=== PATIENT | female | born 1945 | race Caucasian/White ===

== ENCOUNTER 2016-07-31 06:19 | Inpatient (IN) | payer MEDICARE, OTHER, SELFPAY ==
[2016-07-28 14:03] LABS: BASOPHILS 0.6 %; BASOPHILS ABSOLUTE 0.05 10/3/uL (0.0-0.16); EOSINOPHILS 4.6 %; EOSINOPHILS ABSOLUTE 0.42 10/3/uL (0.0-0.53); HEMATOCRIT 40.1 % (36.0-48.0); HEMOGLOBIN 13.4 g/dL (12.0-16.0); IMMATURE GRANULOCYTES 0.3 %; IMMATURE GRANULOCYTES ABSOLUTE 0.03 10/3/uL (0.0-0.11); LYMPHOCYTES 20.6 %; LYMPHOCYTES ABSOLUTE 1.86 10/3/uL (0.67-4.30); MEAN CORPUS HGB CONC 33.4 g/dL (32.0-36.0); MEAN CORPUSCULAR HEMOGLOB 28.2 pg (26.0-34.0); MEAN CORPUSCULAR VOLUME 84.4 fL (80-100); MEAN PLATELET VOLUME 9.9 fL (9.2-13.0); MONOCYTES 6.4 %; MONOCYTES ABSOLUTE 0.58 10/3/uL (0.21-1.20); NEUTROPHILS 67.5 %; NEUTROPHILS ABSOLUTE 6.11 10/3/uL (2.02-8.40); PLATELET COUNT 299 10/3/uL (150-400); RBC DISTRIBUTION WIDTH 14.3 % (12.0-16.0); RED CELL COUNT 4.75 10/6/uL (4.0-5.6); WHITE BLOOD CELLS 9.1 10/3/uL (4.5-10.5)
[2016-07-28 14:04] LABS: MANUAL DIFF NO %
[2016-07-28 14:08] LABS: INTERNATIONAL NORMAL RATI 1.1 UNITS (-); PROTIME (NOT ORD) 13.7 SEC (12.0-14.5)
[2016-07-28 14:19] LABS: A/G RATIO 1.1 (0.7-1.9); ALBUMIN 4.1 G/DL (3.5-5.0); ALKALINE PHOSPHATASE 105 U/L (45-117); BUN (BLOOD UREA NITROGEN) 22 MG/DL (6-23); CALCIUM, SERUM 9.4 MG/DL (8.5-10.4); CHLORIDE, SERUM 103 MMOL/L (96-112); CO2 (CARBON DIOXIDE) 28 MMOL/L (24-34); CREATININE 0.85 MG/DL (0.55-1.02); GFR AFRICAN AMERICAN 80 ML/MIN (>=60); GFR NON AFRICAN AMERICAN 69 ML/MIN (>=60); GLOBULIN 3.8 G/DL (2.5-4.1); GLUCOSE, SERUM 143 MG/DL (60-99); POTASSIUM, SERUM 5.1 MMOL/L (3.5-5.3); SGOT(AST) 23 U/L (5-40); SGPT(ALT) 23 U/L (5-65); SODIUM, SERUM 139 MMOL/L (135-148); TOTAL BILIRUBIN 0.4 MG/DL (0-1.2); TOTAL PROTEIN 7.9 G/DL (6.0-8.5)
[2016-07-28 16:17] LABS: ASCORBIC ACID (UR NOT ORDER) NEG (NEG); BILIRUBIN, URINE NEGATIVE (NEG); KETONE, URINE NEGATIVE (NEG); LEUKOCYTE ESTERASE(NOT OR SMALL (NEG); WBC (NOT ORDERED) (RFLEX) 3 (0-5)
--- NOTE | ~2016-07-31 | OP ---
Record Of Operation [facility] [address] [place]. [address] NAME: BETY FRANCIS : 45 STATUS : ADM IN [facility]#: [id number] AGE: 71 ADM/REG DATE : 07/31/16 MR#: [id number] REPORT SERV DATE: 07/31/16 DICTATED BY: NISREEN WU JR. DATE: 07/31/16 REPORT STATUS : Draft TRANSCRIBED BY: MODL DATE: 07/31/16 DATE OF PROCEDURE: 07/31/2016 PREOPERATIVE DIAGNOSES: Bronchoscopy, left thoracoscopy with left upper lobectomy, complete mediastinal node dissection, dayami stations 5, 6, 7, 9, 10L, 11L; and intercostal nerve block. SURGEON: Nisreen Wu M.D. [employer]ING MACHINE OPERATOR: Héctor Bradford. RESIDENT SURGEON: Dr. Andrew Bolivar. 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 There were some mild mediastinal lymphadenopathy, but none of the nodes looked pathologically concerning. There was good reexpansion of the left lower lobe. Preoperatively, the patient was able to stop smoking for least two weeks and felt like she had reasonable handle on her addiction and that she wishes to be aggressive from a cancer standpoint. She understood the impact on her long-term lung function and cancerous risk if she went back to smoking. DETAILS OF OPERATION: After adequate anesthesia, the patient was intubated. Bronchoscopy was performed noting no endobronchial lesions. Mucous secretions were evacuated. There was no contraindication proceeding on with surgery. Left-sided double-lumen endotracheal tube was then placed. The patient was then positioned in the right lateral decubitus position. The left chest was prepped and draped in routine sterile fashion. A small incision made overlying the lower intercostal space. A separate anterior trocar incision was also made. Through these two incision sites, above findings were noted. Chest was explored noting no evidence of metastatic disease. The tumor was identified. The plan was to proceed on with a left upper lobectomy. The inferior pulmonary ligament was then divided. The inferior pulmonary vein was identified. The hilar structures were dissected out. The left superior pulmonary vein was then identified and transected with a vascular stapler. The pulmonary arterial branches were identified and transected with the vascular stapler. The bronchus was then divided with a ARTHUR stapler. The fissure was divided with multiple firings of ARTHUR stapler with tissue reinforcements. The specimen was placed in a specimen bag and brought out through the anterior trocar site. Nodes from the AP window, subcarinal, inferior pulmonary ligament, and hilar regions were removed. Chest was thoroughly irrigated with sterile water. A 28-Georgian chest tube was placed. The lung was reinflated. The trocar sites were closed with running Vicryl sutures. The skin was closed with running monofilament suture. A Dermabond dressing was applied. An intercostal nerve block then been performed prior to closing the chest. The patient tolerated the procedure well and taken back to the recovery room in stable condition. /[facility] Record Of Operation [address] [place]. [address] NAME: BETY FRANCIS : 45 STATUS : ADM IN [facility]#: [id number] AGE: 71 ADM/REG DATE : 07/31/16 MR#: [id number] REPORT SERV DATE: 07/31/16 DICTATED BY: NISREEN WU JR. DATE: 07/31/16 REPORT STATUS : Draft TRANSCRIBED BY: ENRIQUETA DATE: 07/31/16 Nisreen Wu Jr., M.D. / [id number] CC: Tabitha Coyne Jr., M.D.
[~2016-07-31 06:19] MED LIST: ASAB PO; COREG6 PO; CRESTOR20 MG PO; FEMARA PO; GLUCPH PO; HUMALOG SC; HUMULIN R1 ML SC; KADIAN10 MG PO; KLONO2 PO; LEVOTHROID25 MCG PO; LORTAB10 PO; NIASPAN500 PO; NORV5 PO; OXYCOD PO; OXYCONTIN30 MG PO; PREV30 PO; PRIN10 PO; PROAIR HFA INH; PROZAC PO; PROZAC40 MG PO; RANITIDINE300 MG PO; ROXICODONE15 MG PO; ROXICODONE30 MG PO; SEROQUEL1C PO; SEROQUEL50 MG PO; SINGULAIR1 PO; SPIRIVA INH; SYN.05 PO; TAMIFLU PO; ZANAFLEX 4 MG TA4 MG PO; ZANTAC300 MG PO; ZETIA PO
[2016-08-01 03:53] LABS: BASOPHILS 0.1 %; BASOPHILS ABSOLUTE 0.01 10/3/uL (0.0-0.16); EOSINOPHILS 0.1 %; EOSINOPHILS ABSOLUTE 0.01 10/3/uL (0.0-0.53); HEMATOCRIT 37.4 % (36.0-48.0); HEMOGLOBIN 12.4 g/dL (12.0-16.0); IMMATURE GRANULOCYTES 0.3 %; IMMATURE GRANULOCYTES ABSOLUTE 0.04 10/3/uL (0.0-0.11); LYMPHOCYTES 8.2 %; LYMPHOCYTES ABSOLUTE 1.02 10/3/uL (0.67-4.30); MEAN CORPUS HGB CONC 33.2 g/dL (32.0-36.0); MEAN CORPUSCULAR HEMOGLOB 28.2 pg (26.0-34.0); MONOCYTES 7.8 %; MONOCYTES ABSOLUTE 0.97 10/3/uL (0.21-1.20); NEUTROPHILS 83.5 %; NEUTROPHILS ABSOLUTE 10.44 10/3/uL (2.02-8.40); PLATELET COUNT 228 10/3/uL (150-400); RBC DISTRIBUTION WIDTH 14.3 % (12.0-16.0); WHITE BLOOD CELLS 12.5 10/3/uL (4.5-10.5)
[2016-08-01 03:54] LABS: MANUAL DIFF NO %
[2016-08-01 04:05] LABS: CALCIUM, SERUM 8.5 MG/DL (8.5-10.4); CHLORIDE, SERUM 103 MMOL/L (96-112); CO2 (CARBON DIOXIDE) 27 MMOL/L (24-34); CREATININE 0.88 MG/DL (0.55-1.02); GFR AFRICAN AMERICAN 77 ML/MIN (>=60); GFR NON AFRICAN AMERICAN 66 ML/MIN (>=60); POTASSIUM, SERUM 4.3 MMOL/L (3.5-5.3); SODIUM, SERUM 138 MMOL/L (135-148)
[2016-08-01 04:07] LABS: BUN (BLOOD UREA NITROGEN) 13 MG/DL (6-23); GLUCOSE, SERUM 229 MG/DL (60-99)
[2016-08-01] MEDS ORDERED: PCET PO (10:07)
[2016-08-02 05:22] LABS: BUN (BLOOD UREA NITROGEN) 15 MG/DL (6-23); CALCIUM, SERUM 8.5 MG/DL (8.5-10.4); CHLORIDE, SERUM 99 MMOL/L (96-112); CO2 (CARBON DIOXIDE) 28 MMOL/L (24-34); GFR AFRICAN AMERICAN 66 ML/MIN (>=60); GFR NON AFRICAN AMERICAN 57 ML/MIN (>=60); GLUCOSE, SERUM 238 MG/DL (60-99); POTASSIUM, SERUM 4.1 MMOL/L (3.5-5.3); SODIUM, SERUM 136 MMOL/L (135-148)
== END 2016-08-02 15:24 | disposition home or self-care (01) | DRG 165 ==
LOC: SDC/OF 06:19 → PACU 12:51 → 5NO 14:21
PROVIDERS: Internal Medicine; Thoracic Surgery (Cardiothoracic Vascular Surgery)
PROC: 3E0T3BZ Introduction of Anesthetic Agent into Peripheral Nerves and Plexi, Percutaneous Approach (ICD-10-PCS; 2016-07-31)
PROC: 0BTG4ZZ Resection of Left Upper Lung Lobe, Percutaneous Endoscopic Approach (ICD-10-PCS; principal; 2016-07-31 08:15)
PROC: 07T74ZZ Resection of Thorax Lymphatic, Percutaneous Endoscopic Approach (ICD-10-PCS; 2016-07-31 08:15)
DX: C34.12 Malignant neoplasm of upper lobe, left bronchus or lung (principal); J44.9 Chronic obstructive pulmonary disease, unspecified; E11.9 Type 2 diabetes mellitus without complications; I10 Essential (primary) hypertension; F17.210 Nicotine dependence, cigarettes, uncomplicated; Z82.49 Family history of ischemic heart disease and other diseases of the circulatory system; E78.2 Mixed hyperlipidemia; G47.33 Obstructive sleep apnea (adult) (pediatric); I73.9 Peripheral vascular disease, unspecified; Z85.3 Personal history of malignant neoplasm of breast; Z79.4 Long term (current) use of insulin
CPT/HCPCS: 36415; 71020; 80048; 80053; 81001; 82962; 83036; 85025; 85610; 86850; 86900; 86901; 87086; 87641; 88305; 88307; 88309; 88313; 93005; 94010; 94640; 94729; A9270-GY; J0690; J1885; J2250; J2370; J2405; J2710; J2795; J3010